=== PATIENT | male | born 1965 | race Two or more races ===

== ENCOUNTER 2020-03-15 11:50 | Emergency (ER) | payer SELFPAY ==
[~2020-03-15] VITALS: Ht 170.2 cm; Wt 104.3 kg
[2020-03-15 11:55] VITALS: Ht 170.2 cm; Wt 104.3 kg
[2020-03-15 13:45] VITALS: BP 140/92
== END 2020-03-15 13:45 | disposition home or self-care (01) ==
LOC: ED 11:50
DX: J18.9 Pneumonia, unspecified organism (principal); Z20.828 Contact with and (suspected) exposure to other viral communicable diseases
CPT/HCPCS: Q0092